=== PATIENT | male | born 1950 | race Caucasian/White ===

== ENCOUNTER → 2024-01-12 07:44 | Outpatient (CLI) | payer MEDICARE, OTHER, SELFPAY ==
[2024-01-12 08:31] LABS: Influenza A - CEPHEID Flu A NEGATIVE (NEGATIVE); Influenza B - CEPHEID Flu B NEGATIVE (NEGATIVE); Respiratory Syncytial Virus Negative (Negative)
[2024-01-12 08:32] LABS: COVID-19 CEPHEID 4-PLEX PCR Negative (Negative)
[2024-01-12 10:04] LABS: Add Manual Diff / Slide Review NO; Basophils Absolute Auto 0 /uL (0-100); Basophils Percent Auto 0.4 % (0-2); Eosinophils Absolute Auto 0 /uL (0-450); Eosinophils Percent Auto 0.1 % (2-4); Hematocrit 39.8 % (41-53); Hemoglobin 13.4 g/dL (13.5-17.5); Lymphocytes Absolute Auto 900 /uL (1100-4500); Lymphocytes Percent Auto 17.6 % (25-40); Mean Corpuscular HGB Conc 33.8 % (30-36); Mean Corpuscular Hemoglobin 28.6 PG (26-34); Mean Corpuscular Volume 84.5 fL (80-100); Monocytes Absolute Auto 600 /uL (0-900); Monocytes Percent Auto 11.5 % (3-14); Neutrophils Absolute Auto 3500 /uL (1500-7000); Neutrophils Percent Auto 70.4 % (50-75); Platelet Count 182 X10^3/uL (150-400); Red Blood Cell Count 4.71 X10^6/uL (4.5-5.9); Red Cell Distribution Width 14.7 % (11.6-14.8); White Blood Cell Count 4.9 X10^3/uL (4.5-11.0)
[2024-01-12 10:21] LABS: Sample 1 Time POSITIVE
[2024-01-12 10:32] LABS: Alanine Aminotransferase 25 IU/L (<50); Albumin 3.9 g/dL (3.5-5.0); Albumin Globulin Ratio 1.6 (1.0-2.8); Alkaline Phosphatase 59 U/L (38-126); Aspartate Aminotransferase 27 IU/L (17-59); BUN Creatinine Ratio 15.7 (6-22); Bilirubin Total 0.7 mg/dL (0.2-1.3); Blood Urea Nitrogen 21 mg/dL (9-20); Calcium 9.1 mg/dL (8.4-10.2); Carbon Dioxide 20 mmol/L (22-32); Chloride 103 mmol/L (98-107); Estimated Glomerular Filt Rate 56 mL/min (>60); Globulin 2.5 g/dL (1.7-4.1); Glucose 114 mg/dL (80-110); HEMOLYSIS < 15 (0-50); Potassium 3.9 mmol/L (3.4-5.1); Sodium 133 mmol/L (137-145); Total Protein 6.4 g/dL (6.3-8.2)
[2024-01-12 11:04] LABS: Clostridium Difficile Tox PCR Negative for C. diff (Negative)
== END ==
PROVIDERS: Referring Provider Nurse Practitioner Family; Visit Provider Nurse Practitioner Family
DX: R50.9 Fever, unspecified (principal); R19.7 Diarrhea, unspecified
CPT/HCPCS: 0241U; 36415; 80053; 82270; 85025; 87045; 87205; 87493